=== PATIENT | female | born 1985 | race Caucasian/White ===

== ENCOUNTER 2017-12-16 14:17 | Emergency (ER) | payer BC ==
[~2017-12-16] VITALS: Ht 157.5 cm; Wt 87.1 kg
[2017-12-16 14:21] VITALS: BP 150/98; Ht 157.5 cm; Wt 87.1 kg
== END 2017-12-16 17:43 | disposition home or self-care (01) ==
LOC: ED 14:17
DX: J18.9 Pneumonia, unspecified organism (principal)

== ENCOUNTER 2018-08-10 23:11 | Emergency (ER) | payer MEDICAID ==
[2018-08-11 00:12] LABS: BASOPHIL % 0.6 % (0-2); PLATELET COUNT 290 x10^3mcL (130-400); RED CELL DISTRIBUTION WIDTH 12.5 % (11.5-14.5)
[2018-08-11 00:20] LABS: CHLORIDE SERUM 104 mmol/L (98-107); GFR1 > 60 mL/min; GLUCOSE SERUM 101 mg/dL (74-106); POTASSIUM SERUM 3.6 mmol/L (3.5-5.1); SODIUM SERUM 141 mmol/L (136-145)
[2018-08-11 00:25] LABS: ALBUMIN 4.2 g/dL (3.4-5.0); ALKALINE PHOSPHATASE 116 U/L (46-116); ALT/SGPT 30 U/L (14-59); AMYLASE 59 U/L (25-115); AST/SGOT 15 U/L (15-37); BILIRUBIN TOTAL 0.2 mg/dL (0.20-1.00); LIPASE 125 IU/L (73-393)
[2018-08-11 03:18] VITALS: BP 137/83
== END 2018-08-11 03:18 | disposition home or self-care (01) ==
LOC: ED 23:11
PROVIDERS: Emergency Medicine
DX: T18.8XXA Foreign body in other parts of alimentary tract, initial encounter (principal); R13.10 Dysphagia, unspecified; X58.XXXA Exposure to other specified factors, initial encounter; Y93.89 Activity, other specified; Y92.89 Other specified places as the place of occurrence of the external cause; Y99.8 Other external cause status
CPT/HCPCS: J1610; J1885; J2405